=== PATIENT | female | born 1970 | race Caucasian/White ===

== ENCOUNTER 2016-11-01 11:42 | Day surgery (SDC) | payer OTHER ==
[~2016-11-01] VITALS: Ht 170.2 cm; Wt 117.9 kg
[~2016-11-01 11:42] MED LIST: ADVAIR 100/501 DISK IH; B COMPLETE1 EACH PO; FISH OIL 1,2001 EAC3 PO; HYZAAR 50-121 TABLET PO; MAGNESIUM250 MG PO; NEXIUM40 MG PO; REGLAN5 MG PO; RELPAX40 MG PO; SUCRALFATE1 GM PO; TOPAMAX50 MG PO; TOPROL XL100 MG PO; TOPROL XL200 MG PO; TORADOL10 MG PO; VENTOLIN HFA18 GM IH; VERAMYST10 GM BOTH NARES; WYGESIC,DARV1 TABLET PO
[2016-11-01 12:16] VITALS: BP 129/82
[2016-11-01 16:06] VITALS: BP 140/65
[2016-11-01 16:51] VITALS: BP 132/76
== END 2016-11-01 17:02 | disposition home or self-care (01) ==
LOC: SDC 11:42
PROC: 0LN Tendons, Release (ICD-10-PCS; principal; 2016-11-01)
DX: M72.2 Plantar fascial fibromatosis (principal); I10 Essential (primary) hypertension; J45.909 Unspecified asthma, uncomplicated; Z83.3 Family history of diabetes mellitus; Z82.49 Family history of ischemic heart disease and other diseases of the circulatory system; Z68.41 Body mass index [BMI] 40.0-44.9, adult; Z88.0 Allergy status to penicillin; Z91.040 Latex allergy status
CPT/HCPCS: J0690; J1100; J2175; J2250; J2405; J3010; S0020

== ENCOUNTER 2017-11-28 09:51 | Emergency (ER) | payer OTHER ==
[~2017-11-28] VITALS: Ht 170.2 cm; Wt 115.5 kg
[2017-11-28 10:54] LABS: BASOPHIL (%) 0.2 % (0-1); EOSINOPHIL (%) 0.3 % (0-5); HEMATOCRIT 38.2 % (36.0-46.0); HEMOGLOBIN 13.3 G/DL (11.9-15.5); IMMATURE GRANULOCYTE (%) 0.3 % (0.0-0.7); LYMPHOCYTE (%) 20.9 % (15-42); LYMPHOCYTE COUNT 2.4 K/uL (1.0-2.8); MCH 31.4 PG (29.0-34.0); MCHC 34.8 G/DL (30.0-36.0); MCV 90.1 FL (83-99); NEUTROPHIL (%) 69.3 % (45-76); NEUTROPHIL COUNT 7.9 K/uL (1.8-6.4); PLATELET COUNT 271 K/uL (156-360); RBC DIS.WIDTH-CV 12.4 % (11.8-14.6); RBC DIS.WIDTH-SD 40.5 % (39-53); RED BLOOD COUNT 4.24 M/uL (3.80-5.20); WHITE BLOOD COUNT 11.4 K/uL (4.1-10.2)
[2017-11-28 11:03] LABS: CHLORIDE 106 mEq/L (99-109); SODIUM 140 mEq/L (136-147)
[2017-11-28 11:04] LABS: APPEARANCE CLEAR ((CLEAR)); BILIRUBIN NEGATIVE; BLOOD NEGATIVE; COLOR YELLOW ((YELLOW)); GLUCOSE (STRIP) 150; KETONES NEGATIVE; LEUKOCYTES NEGATIVE; NITRITE NEGATIVE; PROTEIN (STRIP) NEGATIVE; SPECIFIC GRAVITY 1.014 (1.000-1.030); UROBILINOGEN 0.2 MG/DL (0.2-1.0)
[2017-11-28 11:04] LABS: GLUCOSE 140 mg/dL (70-99)
[2017-11-28 11:08] LABS: CREATININE 0.7 mg/dL (0.6-1.3); GFR ESTIMATE (CALCULATED) > 59 mL/min/
[2017-11-28 11:09] LABS: UREA NITROGEN (BUN) 11 mg/dL (9-23)
[2017-11-28 12:40] VITALS: BP 123/69
== END 2017-11-28 13:17 | disposition home or self-care (01) ==
LOC: EME 09:51
PROVIDERS: Emergency Medicine
PROC: 0T9B70Z Drainage of Bladder with Drainage Device, Via Natural or Artificial Opening (ICD-10-PCS; principal; 2017-11-28)
DX: R33.9 Retention of urine, unspecified (principal); Z98.890 Other specified postprocedural states; Z96.652 Presence of left artificial knee joint; J45.909 Unspecified asthma, uncomplicated; G43.909 Migraine, unspecified, not intractable, without status migrainosus; Z90.711 Acquired absence of uterus with remaining cervical stump; Z88.0 Allergy status to penicillin; Z88.5 Allergy status to narcotic agent; Z91.040 Latex allergy status
CPT/HCPCS: 80048; 81003; 85025; 99281; 99283